=== PATIENT | male | born 1940 ===

== ENCOUNTER → 2018-03-22 11:36 | Outpatient (CLI) | payer MEDICARE, SELFPAY ==
--- NOTE | 2018-03-22 | DI.CT.S_ITS ---
PROCEDURE: CT LUMBAR SPINE WO CON INDICATIONS: DISC DEGENERATION TECHNIQUE: Noncontrast 3 mm thick sections acquired from the T12 level to the sacrum. Sagittal and coronal reformats were constructed. For radiation dose reduction, the following was used: automated exposure control. COMPARISON: None. FINDINGS: Image quality: Excellent. Bones: There is normal bony alignment. No acute vertebral body compression fractures. No suspicious lytic or blastic bony lesions. Central spinal caliber is of normal overall caliber. No pars defects. T12-L1: Within normal limits L1-L2: Within normal limits. L2-L3: Degenerative endplate changes are noted with decreased intervertebral disc space. There is broad-based disc bulge and bilateral facet arthrosis with mild to moderate central canal stenosis, no significant neural foramina narrowing. L3-L4: There is broad-based disc bulge and bilateral facet arthrosis with mild to moderate central canal stenosis and bilateral neural foramina narrowing. L4-L5: There is broad-based disc bulge and bilateral facet arthrosis with mild to moderate central canal stenosis and bilateral neuroforaminal narrowing. L5-S1: Broad-based disc bulge and bilateral facet arthrosis is seen with mild to moderate central canal stenosis and left worse than right bilateral neuroforaminal narrowing. Soft tissues: No retroperitoneal masses or hematomas. Visualized aorta is normal in caliber. IMPRESSION: 1. Degenerative disc bulge and bilateral facet arthrosis at L2-3 through L5-S1 levels causing mild to moderate central canal stenosis and bilateral neuroforaminal narrowing more prominent at L4-5 and L5-S1 levels. 2. No acute compression fracture or spondylolisthesis. No suspicious bony lesion. Dictated by: Kashif Salazar M.D. on 03/22/2018 at 15:04 Approved by: Kashif Salazar M.D. on 03/22/2018 at 15:14
== END ==
PROVIDERS: Family Provider Family Medicine Adult Medicine; PCP Family Medicine Adult Medicine; Visit Provider Orthopaedic Surgery
DX: M51.36 Other intervertebral disc degeneration, lumbar region (principal); M51.37 Other intervertebral disc degeneration, lumbosacral region; M47.816 Spondylosis without myelopathy or radiculopathy, lumbar region; M47.817 Spondylosis without myelopathy or radiculopathy, lumbosacral region; M48.061 Spinal stenosis, lumbar region without neurogenic claudication; M48.07 Spinal stenosis, lumbosacral region
CPT/HCPCS: 72131

== ENCOUNTER 2018-11-17 08:31 | Day surgery (SDC) | payer MEDICARE, SELFPAY ==
[2018-11-17] VITALS (7 sets, daily range): BP systolic 152–161; BP diastolic 93–102; PULSE 69–77; RESP 9–96; TEMP 36.4–36.8; O2SAT 11–97; BMI 28.7
--- NOTE | 2018-11-17 | PATH_ITS ---
[facility] Accession Number: [id number] . 01 Material submitted: . body - POLYP AT 30 . 02 Diagnosis: Biopsy, Colon Polyp at 30 cm: Tubular adenoma. MRV/11/18/2018 . 02 Electronically signed: . Trevon Doyle MD, Pathologist NPI- [id number] . 01 Gross description: . POLYP AT 30: Received in formalin is 1 fragment(s) of saenz, soft tissue measuring 0.3 x 0.2 x 0.2 cm which is entirely submitted and submitted entirely in 1 cassette(s) /DMC /DMC . 02 Pathologist provided ICD-10: D12.5 . 02 CPT . 903470 Performed at: 01 [facility] [address] [place] [address], [place], [place] [id number] MD Cong Dow MD Phone: [phone] Performed at: 02 [facility] [address] [place], [place] [id number] MD Marisol White MD Phone: [phone]
[2018-11-17] MEDS: SODIUM CHLORIDE 0.9% 1,000 ML 200 ML IV (09:31)
[2018-11-17] MEDS: fentaNYL 250 MCG/5 ML INJ IV (10:48)
[2018-11-17] MEDS: MIDAZOLAM 5 MG/5 ML VIAL IV (10:48)
--- NOTE | 2018-11-17 10:54 | PM.OP.ENDO ---
Operative Date/Time/Diagnoses Date of procedure: 11/17/18 Time of procedure: 10:54 Pre-op diagnosis: See indication and findings Procedure & Clinicians Study performed: Colonoscopy Same procedure as scheduled: Yes Indications: Screening Surgeon: Ez Kebede Procedure Notes Procedure in detail: After informed consent was obtained the patient was placed in left lateral decubitus position. The video colonoscope was introduced the rectum slowly advanced to the cecum. On slow withdrawal mucosa was carefully examined. The scope was removed. The patient tolerated procedure well. The preparation was good. Blood loss none Complications none Findings 1. 5 mm polyp at 30 cm Jumbo biopsy removed completely 2. Extensive sigmoid left-sided diverticulosis with small and large diverticula. 3. Otherwise normal colonoscopy to cecum This should be Gene's last colonoscopy. We will be in touch regarding the biopsies.
--- NOTE | 2018-11-17 11:05 | PM.HP.1 ---
History of Present Illness Date Patient Seen: 11/17/18 Time Patient Seen: 11:06 Chief complaint: [id number] Narrative: Screening colonoscopy. Last colonoscopy 10 years ago. No history of polyps. Patient History Medical History (Updated 11/17/18 @ 11:09 by Ez Kebede MD) Chronic low back pain (Acute) Depression (Acute) GE reflux (Acute) Gilbert syndrome (Acute) History of TIA (transient ischemic attack) (Acute) History of coronary artery disease (Acute) Hypertension (Acute) Pacemaker (Acute) Surgical History (Updated 11/17/18 @ 11:08 by Ez Kebede MD) Bioprosthetic mitral valve replacement, current hospitalization (Acute) Social History household members: spouse Family & Social History Social History: household members spouse Meds Home Medications Medication Instructions Recorded Confirmed Type omeprazole 20 mg PO QDAY@0600 #0 07/18/11 11/17/18 History alfuzosin 10 mg PO BEDTIME 11/17/18 11/17/18 History aspirin 81 mg PO DAILY 11/17/18 11/17/18 History cholecalciferol (vitamin D3) 2,000 unit PO DAILY 11/17/18 11/17/18 History cyanocobalamin (vitamin B-12) 1,000 mg PO DAILY 11/17/18 11/17/18 History diltiazem HCl 120 mg PO BEDTIME 11/17/18 11/17/18 History escitalopram oxalate 20 mg PO DAILY 11/17/18 11/17/18 History gabapentin 100 mg PO DAILY 11/17/18 11/17/18 History gabapentin 300 mg PO BEDTIME 11/17/18 11/17/18 History latanoprost 1 drp EYE-BOTH BEDTIME 11/17/18 11/17/18 History prazosin 10 mg PO BEDTIME 11/17/18 11/17/18 History trazodone 100 mg PO BEDTIME 11/17/18 11/17/18 History Allergies Allergy/AdvReac Type Severity Reaction Status Date / Time shellfish derived Allergy Severe crab, Unverified 07/29/17 12:05 [SHELLFISH DERIVED] anaphylaxis Exam Vital Signs (past 8 hours): - 11/17/18 09:39 11/17/18 11:01 Temperature 98.2 F 97.6 F Pulse Rate 70 70 Respiratory Rate 16 9 L Blood Pressure 160/102 H 154/95 H Pulse Oximetry 94 95 Oxygen Delivery Method Nasal Cannula Oxygen Flow Rate 2 Narrative Exam Narrative: Oropharynx free of lesions Chest clear to auscultation percussion Cardiac exam reveals no S3 or murmur Assessment & Plan Assessment & Plan narrative: Need for screening colonoscopy. 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 Risks, benefits, alternatives have been explained. This should be his last colonoscopy.
--- NOTE | 2018-11-17 11:10 | P.HP_ITS ---
History of Present Illness Date Patient Seen: 11/17/18 Time Patient Seen: 11:06 Chief complaint: [id number] Narrative: Screening colonoscopy. Last colonoscopy 10 years ago. No history of polyps. Patient History Medical History (Updated 11/17/18 @ 11:09 by Ez Kebede MD) Chronic low back pain (Acute) Depression (Acute) GE reflux (Acute) Gilbert syndrome (Acute) History of TIA (transient ischemic attack) (Acute) History of coronary artery disease (Acute) Hypertension (Acute) Pacemaker (Acute) Surgical History (Updated 11/17/18 @ 11:08 by Ez Kebede MD) Bioprosthetic mitral valve replacement, current hospitalization (Acute) Social History household members: spouse Family & Social History Social History: household members spouse Meds Home Medications Medication Instructions Recorded Confirmed Type omeprazole 20 mg PO QDAY@0600 #0 07/18/11 11/17/18 History alfuzosin 10 mg PO BEDTIME 11/17/18 11/17/18 History aspirin 81 mg PO DAILY 11/17/18 11/17/18 History cholecalciferol (vitamin D3) 2,000 unit PO DAILY 11/17/18 11/17/18 History cyanocobalamin (vitamin B-12) 1,000 mg PO DAILY 11/17/18 11/17/18 History diltiazem HCl 120 mg PO BEDTIME 11/17/18 11/17/18 History escitalopram oxalate 20 mg PO DAILY 11/17/18 11/17/18 History gabapentin 100 mg PO DAILY 11/17/18 11/17/18 History gabapentin 300 mg PO BEDTIME 11/17/18 11/17/18 History latanoprost 1 drp EYE-BOTH BEDTIME 11/17/18 11/17/18 History prazosin 10 mg PO BEDTIME 11/17/18 11/17/18 History trazodone 100 mg PO BEDTIME 11/17/18 11/17/18 History Allergies Allergy/AdvReac Type Severity Reaction Status Date / Time shellfish derived Allergy Severe crab, Unverified 07/29/17 12:05 [SHELLFISH DERIVED] anaphylaxis Exam Vital Signs (past 8 hours): - 11/17/18 09:39 11/17/18 11:01 Temperature 98.2 F 97.6 F Pulse Rate 70 70 Respiratory Rate 16 9 L Blood Pressure 160/102 H 154/95 H Pulse Oximetry 94 95 Oxygen Delivery Method Nasal Cannula Oxygen Flow Rate 2 Narrative Exam Narrative: Oropharynx free of lesions Chest clear to auscultation percussion Cardiac exam reveals no S3 or murmur Assessment & Plan Assessment & Plan narrative: Need for screening colonoscopy. We we received clearance from his [employer] manager office to perform the procedure and for his pacemaker. Risks, benefits, alternatives have been explained. This should be his last colonoscopy.
--- NOTE | 2018-11-17 15:42 | SUR.PHASEII ---
BP elevated, BP elevated on admit Dr. Kebede aware, instructed pt to take antihypertensive home meds when he gets home. Both voiced an understanding.
== END 2018-11-17 11:55 | disposition home or self-care (01) ==
PROVIDERS: PCP Nurse Practitioner Family; Visit Provider Internal Medicine Gastroenterology
PROC: 0DJD8ZZ Inspection of Lower Intestinal Tract, Via Natural or Artificial Opening Endoscopic (ICD-10-PCS; CPT 45378; principal; 2018-11-17 10:00)
DX: Z12.11 Encounter for screening for malignant neoplasm of colon (principal); I10 Essential (primary) hypertension; Z95.0 Presence of cardiac pacemaker; I25.10 Atherosclerotic heart disease of native coronary artery without angina pectoris; K57.30 Diverticulosis of large intestine without perforation or abscess without bleeding; D12.5 Benign neoplasm of sigmoid colon
CPT/HCPCS: 45380; 88305; J2250; J3010

== ENCOUNTER → 2018-12-28 14:45 | Outpatient (CLI) | payer MEDICARE, SELFPAY ==
--- NOTE | 2018-12-28 | DI.ECHO.S_ITS ---
[facility] +---------+ [facility] +---------+ : : [address] : : : : [id number] : : : : Phone: [phone] Echocardiogram Report + + :Name: STEVE LUNSFORD Study Date: 12/28/2018 Height: 71 in : :[facility] Exam Location: IS Weight: 198 lb : : Gender: Male BSA: 2.1 m2 : :: 1940 Age: 78 yrs BP: 127/75 mmHg: :Reason For Study: AVR : : Performed By: Florentino Oreilly : :Referring: YAYO HANNA : + + Interpretation Summary The left ventricle is normal in size. There is moderate asymmetric left ventricular hypertrophy. The ejection fraction is estimated to be 55-60%. There has been no significant change since the previous study. Apical wall motion abnormality may reflect pacemaker activation. The right ventricle is normal in size and function. There is a pacemaker lead in the right ventricle. Right ventricular systolic pressure is estimated to be 22 mmHg plus the clinically estimated CVP which cannot be estimated on this exam. The left atrium is mildly dilated. Right atrial size is normal. There is a bioprosthetic aortic valve. The gradients through the prosthetic aortic valve are within the normal range for this type of valve. There is no other significant valvular heart disease. The aortic root is normal size. Procedure: A two-dimensional transthoracic echocardiogram with color flow and Doppler was performed. The study quality was technically adequate. Comparison is made with the echocardiogram of 01/05/14. The patient has a paced rhythm. Left Ventricle: The left ventricle is normal in size. There is moderate asymmetric left ventricular hypertrophy. The ejection fraction is estimated to be 55-60%. There has been no significant change since the previous study. Apical wall motion abnormality may reflect pacemaker activation. Right Ventricle: The right ventricle is normal in size and function. There is a pacemaker lead in the right ventricle. Atria: The left atrium is mildly dilated. Right atrial size is normal. The interatrial septum is intact with no evidence for an atrial septal defect. Mitral Valve: The mitral valve is normal in structure and function. There is trace mitral regurgitation. Aortic Valve: There is a bioprosthetic aortic valve. The prosthetic aortic valve is well-seated. The gradients through the prosthetic aortic valve are within the normal range for this type of valve. No aortic regurgitation is present. Tricuspid Valve: The tricuspid valve is normal in structure and function. There is mild tricuspid regurgitation. Right ventricular systolic pressure is estimated to be 22 mmHg plus the clinically estimated CVP which cannot be estimated on this exam. Pulmonic Valve: The pulmonic valve is normal in structure and function. There is trace pulmonic regurgitation. There is no other significant valvular heart disease. Great Vessels: The aortic root is normal size. The dimensions of the ascending aorta are normal. The pulmonary artery is normal size. The inferior vena cava was not well visualized. Pericardium/ Pleura There is no pericardial effusion. There is no pleural effusion. MMode/2D Measurements & Calculations LVIDd: 4.0 cm LVOT diam: 2.5 cm LVIDs: 3.0 cm Ao root diam: 3.4 cm FS: 26.6 % asc Aorta Diam: 3.5 cm EPSS: 1.1 cm Ao Arch Diam (Prox Trans): 3.2 cm IVSd: 1.4 cm LVPWd: 1.2 cm LV james. diameter/BSA (cm/m^2): 1.9 LV sys. diameter/BSA (cm/m^2): 1.4 LA dimension: 4.2 cm RA long axis: 4.4 cm LA A2 area: 22.9 cm2 RA area: 13.1 cm2 LA A4 area: 22.7 cm2 RA vol: 33.2 ml LA length (vol): 5.7 cm RA : 15.8 ml/m2 LA vol: 77.9 ml LA vol index: 37.1 ml/m2 Doppler Measurements & Calculations Ao V2 max: 184.4 cm/sec LVOT Max Kleber: 132.6 cm/sec Ao V2 mean: 127.7 cm/sec LV V1 max P.0 mmHg Ao max P.6 mmHg LV V1 VTI: 24.5 cm Ao mean P.1 mmHg ELYSSA(I,D): 3.9 cm2 Ao V2 VTI: 31.9 cm ELYSSA(V,D): 3.6 cm2 sev ratio: 0.77 ELYSSA indexed to BSA (cm^2/m^2): 1.8 MV E max kleber: 50.0 cm/sec TR max kleber: 231.8 cm/sec MV A max kleber: 76.6 cm/sec TR max P.5 mmHg MV E/A: 0.65 PA V2 max: 73.7 cm/sec Med Peak E' Kleber: 2.3 cm/sec PA V2 mean: 52.2 cm/sec E/E' med: 22.0 PA mean P.2 mmHg Lat Peak E' Kleber: 4.9 cm/sec PA pr(Accel): 41.6 mmHg E/E' lat: 10.3 PA Accel Time: 0.08 sec E/e' average: 16.2 MV dec time: 0.28 sec SV(LVOT): 123.5 ml Reading Physician:10:21 AM
== END ==
PROVIDERS: PCP Nurse Practitioner Family; Visit Provider Internal Medicine Cardiovascular Disease
DX: I07.1 Rheumatic tricuspid insufficiency (principal); I25.10 Atherosclerotic heart disease of native coronary artery without angina pectoris; Z95.2 Presence of prosthetic heart valve; Z95.0 Presence of cardiac pacemaker
CPT/HCPCS: 93306